=== PATIENT | female | born 1965 | race Caucasian/White ===

== ENCOUNTER 2020-05-29 11:26 | Inpatient (IN) | payer BC ==
[~2020-05-29] VITALS: Ht 162.6 cm; Wt 117.5 kg
--- NOTE | 2020-05-29 12:25 | PHYS DOC ---
Past Medical History Past Medical History: No Pertinent History Past Surgical History: Smoking Status: Never Smoker Alcohol Use: Occasionally General Adult EDM: Chief Complaint: ABDOMINAL PAIN HPI: HPI: Patient is a 55 year old female who presented to ER for evaluation of epigastric and right upper quadrant abdominal pain that radiated to her shoulder since Wednesday. Symptom associated with nausea and vomiting. Patient denies any fever, no chest pain, no trouble breathing. Patient went to see her doctor yesterday who diagnosed her with gastritis, put her on antiacid medication and tramadol. Patient took the medication last night and it helped with the pain however this morning she still having the pain again and she took the medication and still having pain so she came here for evaluation. Review of Systems: Review of Systems: Constitutional: Denies fever or chills. [] Eyes: Denies change in visual acuity. [] HENT: Denies nasal congestion or sore throat. [] Respiratory: Denies cough or shortness of breath. [] Cardiovascular: Denies chest pain or edema. [] GI: Positive for abdominal pain, nausea vomiting, no diarrhea : Denies dysuria. [] Musculoskeletal: Denies back pain or joint pain. [] Integument: Denies rash. [] Neurologic: Denies headache, focal weakness or sensory changes. [] Endocrine: Denies polyuria or polydipsia. [] Lymphatic: Denies swollen glands. [] Psychiatric: Denies depression or anxiety. [] Heart Score: Risk Factors: Risk Factors: DM, Current or recent (<one month) smoker, HTN, HLP, family history of CAD, obesity. Risk Scores: Score 0 - 3: 2.5% MACE over next 6 weeks - Discharge Home Score 4 - 6: 20.3% MACE over next 6 weeks - Admit for Clinical Observation Score 7 - 10: 72.7% MACE over next 6 weeks - Early Invasive Strategies Allergies: Allergies: Allergies Coded Allergies Type Severity Reaction Last Updated Verified No Known Drug Allergies 05/29/20 No Physical Exam: PE: Constitutional: Well developed, well nourished, no acute distress, non-toxic appearance. [] HENT: Normocephalic, atraumatic, bilateral external ears normal, oropharynx m oist, no oral exudates, nose normal. [] Eyes: PERRLA, EOMI, conjunctiva normal, no discharge. [] Neck: Normal range of motion, no tenderness, supple, no stridor. [] Cardiovascular:Heart rate regular rhythm, no murmur [] Lungs & Thorax: Bilateral breath sounds clear to auscultation [] Abdomen: Bowel sounds normal, soft, There is tenderness to palpation in RUQ AND EPIGASTRIC AREA, no masses, no pulsatile masses. [] Skin: Warm, dry, no erythema, no rash. [] Back: No tenderness, no CVA tenderness. [] Extremities: No tenderness, no cyanosis, no clubbing, ROM intact, no edema. [] Neurologic: Alert and oriented X 3, normal motor function, normal sensory function, no focal deficits noted. [] Psychologic: Affect normal, judgement normal, mood normal. [] Current Patient Data: Labs: Laboratory Tests Test 05/29/20 12:18 POC Urine HCG, Qualitative Hcg negative (Negative) Vital Signs: Vital Signs Date Time Temp Pulse Resp B/P (MAP) Pulse Ox O2 Delivery O2 Flow Rate FiO2 05/29/20 12:10 100.2 104 16 139/71 (93) 97 Room Air 100.2 EKG: EKG: [] Radiology/Procedures: Radiology/Procedures: [][facility] [address] [place], [place] [id number] IMAGING REPORT Signed PATIENT: LOUIE DEL RIO ACCOUNT: [id number] : 1965 LOCATION: ER AGE: 55 SEX: F EXAM STATUS: REG ER ORD. PHYSICIAN: INGA NOVA DO REASON: RUQ ABDOMINAL PAIN SINCE WEDNESDAY PROCEDURE: ABDOMEN LTD INDICATION : Reason: RUQ ABDOMINAL PAIN SINCE WEDNESDAY / Spl. Instructions: / History: COMPARISON: None TECHNIQUE: Multiple ultrasound images obtained through the abdomen in grayscale and color. FINDINGS: Liver: Echotexture within normal limits in visualized portions of liver. Gallbladder: Definite gallstones are not seen. Portion of the wall appears mildly prominent. IVC: Partially distended at level of liver. Common Bile Duct: Not dilated. Pancreas: Not well evaluated secondary to overlying bowel gas. Right Kidney: No hydronephrosis. IMPRESSION: * No gallstones or common bile duct dilation is visualized. Electronically signed by: Brandon Rocha MD (05/29/2020 1:21 PM) [id number] DICTATED and SIGNED BY: BRANDON ROCHA MD DATE: 05/29/20 1321 [facility] [address] [place] [address] IMAGING REPORT Signed PATIENT: LOUIE DEL RIO ACCOUNT: [id number] : 1965 LOCATION: ER AGE: 55 SEX: F EXAM STATUS: REG ER ORD. PHYSICIAN: INGA NOVA DO REASON: abdominal pain, hematuria PROCEDURE: CT ABDOMEN PELVIS WO CONTRAST INDICATION: Reason: abdominal pain, hematuria / Spl. Instructions: / History: COMPARISON: None. TECHNIQUE: Axial CT images obtained through the abdomen and pelvis without contrast. One or more of the following individualized dose reduction techniques were utilized for this examination: 1. Automated exposure control; 2. Adjustment of the mA and/or kV according to patient size; 3. Use of iterative reconstruction technique. FINDINGS: Linear opacities at the lung bases which is commonly from atelectasis or scarring. Abdominal aorta is not aneurysmal. Calcific atherosclerosis. No intrahepatic bile duct dilation. No peripancreatic fluid collection. Spleen unremarkable. Urinary bladder partially distended. No hydronephrosis. Intrauterine device is seen. Blind-ending tubular structure in the right lower quadrant measuring approximately 10 mm with adjacent edema to the fat. There is also some high density structure seen at the base which could be secondary to appendicolith. There is also wall thickening of the cecum and adjacent small bowel loops which could be from secondary inflammation from the adjacent appendix. Degenerative changes the spine. Pars defects L5. IMPRESSION: * The appendix is dilated with adjacent edema to the fat. This is concerning for appendicitis. There is some inflammatory changes seen at the adjacent cecum as well as small bowel as well which could be from secondary inflammation from the adjacent appendix. Electronically signed by: Brandon Rocha MD (05/29/2020 2:20 PM) [id number] DICTATED and SIGNED BY: BRANDON ROCHA MD DATE: 05/29/20 1420 Course & Med Decision Making: Course & Med Decision Making Pertinent Labs and Imaging studies reviewed. (See chart for details) Patient is a 55-year-old female who presented to ER today due to right abdominal pain, CT scan show evidence of acute appendicitis, discussed with general surgeon on-call Dr. Farris who stated he will take the patient to the OR tomorrow morning. Anna Disclaimer: Anna Disclaimer: This electronic medical record was generated, in whole or in part, using a voice recognition dictation system. Departure Departure Impression: Primary Impression: Appendicitis Disposition: ADMITTED INPATIENT Admitting Physician: CODY (DR. DIAS) Referrals: NO PCP (PCP) Justicifation of Admission Dx: Justifications for Admission: Justification of Admission Dx: Yes (APPENDICITIS) INGA NOVA DO May 29, 2020 12:25
[2020-05-29 12:28] LABS: BILIRUBIN,URINE SMALL (NEG); CLARITY,URINE CLEAR; COLOR,URINE AMBER; NITRITE,URINE NEGATIVE (NEG); PROTEIN,URINE 30 mg/dL (NEG-TRACE)
[2020-05-29] MEDS ORDERED: MORPHINE SULFATE 4 MG/ML VIAL. IV ONE (12:45)
[2020-05-29 12:46] LABS: BASO # 0.1 x10^3/uL (0.0-0.2); BASO % 0 % (0-3); EOS # 0.1 x10^3/uL (0.0-0.7); EOS % 1 % (0-3); HEMATOCRIT 39.2 % (36.0-47.0); HEMOGLOBIN 13.4 g/dL (12.0-15.5); LYMPH # 0.6 x10^3/uL (1.0-4.8); LYMPH % 5 % (24-48); MEAN CORPUSCULAR HEMOGLOBIN 30 pg (25-35); MEAN CORPUSCULAR HGB CONC 34 g/dL (31-37); MEAN CORPUSCULAR VOLUME 89 fL (79-100); MONO # 0.5 x10^3/uL (0.0-1.1); MONO % 4 % (0-9); NEUT # 10.8 x10^3/uL (1.8-7.7); NEUT % 90 % (31-73); PLATELET COUNT 242 x10^3/uL (140-400); RED BLOOD COUNT 4.42 x10^6/uL (3.50-5.40); WHITE BLOOD COUNT 11.9 x10^3/uL (4.0-11.0)
[2020-05-29 12:47] LABS: CREATININE 0.9 mg/dL (0.6-1.0); GFR 65.5; POTASSIUM 3.7 mmol/L (3.5-5.1)
[2020-05-29 12:47] LABS: BACTERIA,URINE MANY /HPF (0-FEW); SQUAMOUS EPITHELIAL CELL,UR MOD /LPF
[2020-05-29 12:49] LABS: ALBUMIN 3.1 g/dL (3.4-5.0); ALBUMIN/GLOBULIN RATIO 0.7 (1.0-1.7); MAGNESIUM 1.9 mg/dL (1.8-2.4); TOTAL BILIRUBIN 1.4 mg/dL (0.2-1.0); TOTAL PROTEIN 7.4 g/dL (6.4-8.2)
[2020-05-29 12:57] LABS: PROTHROMBIN TIME PATIENT 14.2 SEC (11.7-14.0)
--- NOTE | 2020-05-29 13:24 | RAD ---
INDICATION : Reason: RUQ ABDOMINAL PAIN SINCE WEDNESDAY / . Instructions: / History: COMPARISON: None TECHNIQUE: Multiple ultrasound images obtained through the abdomen in grayscale and color. FINDINGS: Liver: Echotexture within normal limits in visualized portions of liver. Gallbladder: Definite gallstones are not seen. Portion of the wall appears mildly prominent. IVC: Partially distended at level of liver. Common Bile Duct: Not dilated. Pancreas: Not well evaluated secondary to overlying bowel gas. Right Kidney: No hydronephrosis. IMPRESSION: * No gallstones or common bile duct dilation is visualized. Electronically signed by: Armando Dixon MD (05/29/2020 1:21 PM) [id number]
[2020-05-29 13:31] LABS: % LYMPHS 5 % (24-48); % MONOS 4 % (0-10); % SEGS 91 % (35-66); PLT ESTIMATE ADEQUATE (ADEQUATE)
[2020-05-29] MEDS ORDERED: KETOROLAC 30 MG/ML VIAL. IVP ONE (13:45)
--- NOTE | 2020-05-29 14:23 | RAD ---
INDICATION: Reason: abdominal pain, hematuria / Spl. Instructions: / History: COMPARISON: None. TECHNIQUE: Axial CT images obtained through the abdomen and pelvis without contrast. One or more of the following individualized dose reduction techniques were utilized for this examination: 1. Automated exposure control; 2. Adjustment of the mA and/or kV according to patient size; 3. Use of iterative reconstruction technique. FINDINGS: Linear opacities at the lung bases which is commonly from atelectasis or scarring. Abdominal aorta is not aneurysmal. Calcific atherosclerosis. No intrahepatic bile duct dilation. No peripancreatic fluid collection. Spleen unremarkable. Urinary bladder partially distended. No hydronephrosis. Intrauterine device is seen. Blind-ending tubular structure in the right lower quadrant measuring approximately 10 mm with adjacent edema to the fat. There is also some high density structure seen at the base which could be secondary to appendicolith. There is also wall thickening of the cecum and adjacent small bowel loops which could be from secondary inflammation from the adjacent appendix. Degenerative changes the spine. Pars defects L5. IMPRESSION: * The appendix is dilated with adjacent edema to the fat. This is concerning for appendicitis. There is some inflammatory changes seen at the adjacent cecum as well as small bowel as well which could be from secondary inflammation from the adjacent appendix. Electronically signed by: Armando Dixon MD (05/29/2020 2:20 PM) [id number]
[2020-05-29] MEDS ORDERED: PIPERACILLIN/TAZOBACTAM 3.375 GM in IV NORMAL SALINE 50ML 50 ML IV ONE (15:00)
--- NOTE | 2020-05-29 15:08 | PDOC1 ---
History and Physical Date of Admission Date of Admission DATE: 05/29/20 TIME: 15:08 Identification/Chief Complaint Chief Complaint Abdominal pain Source Source: Patient History of Present Illness History of Present Illness Ms Grant is a 55 yo F w/ PMHx obesity who presented to ER for evaluation of epigastric and right upper quadrant abdominal pain that radiated to her shoulder since Wednesday05/27/2020. The pain woke her up around 0300. Symptom associated with nausea and vomiting. Patient denies any fever, no chest pain, no trouble breathing. Patient seen outpatient on 05/28 and placed on antacids and tramadol. Pain was minimally relieved with tramadol. She hoped the pain would go away, but it did not so sought treatment in ED. No vaginal complaints, has IUD in place. On evaluation she had US RUQ that did not reveal cholecystitis, gallstones, or CBD dilation. WBC 11.9, Hb 13.4, platelets 214, INR 1.1, NA 135, LA 3.7, BUN 10, CR 0.9, glucose 105, bilirubin 1.4, albumin 3.1. UA with some blood, so concern for nephrolithiasis prompted a CT abdomen which revealed acute appendicitis. 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 Family History: Coronary Artery Disease (Father and Brother), High Cholestrol Social History Smoke: No ALCOHOL: rare Current Medications Current Medications Current Medications Morphine Sulfate (Morphine Sulfate) 4 mg 1X ONCE IV Last administered on 05/29/20at 12:52; Start 05/29/20 at 12:45; Stop 05/29/20 at 12:46; Status DC Ketorolac Tromethamine (Toradol 30mg Vial) 30 mg 1X ONCE IVP Last administered on 05/29/20at 14:01; Start 05/29/20 at 13:45; Stop 05/29/20 at 13:46; Status DC Piperacillin Sod/ Tazobactam Sod 3.375 gm/Sodium Chloride 50 ml @ 100 mls/hr 1X ONCE IV ; Start 05/29/20 at 15:00; Stop 05/29/20 at 15:29 Ondansetron HCl (Zofran) 4 mg PRN Q8HRS PRN IV NAUSEA/VOMITING; Start 05/29/20 at 15:15; Stop 05/30/20 at 15:14 Morphine Sulfate (Morphine Sulfate) 2 mg PRN Q2HR PRN IV PAIN; Start 05/29/20 at 15:15; Stop 05/30/20 at 15:14 Sodium Chloride 1,000 ml @ 75 mls/hr [id number] IV ; Start 05/29/20 at 15:01; Stop 05/30/20 at 15:00 Allergies Allergies: Coded Allergies: No Known Drug Allergies (Unverified , 05/29/20) ROS General: YES: Chills; No: Night Sweats, Fatigue, Malaise, Appetite, Other PSYCHOLOGICAL ROS: No: Anxiety, Behavioral Disorder, Concentration difficultie, Decreased libido, Depression, Disorientation, Hallucinations, Hostility, Irritablity, Memory difficulties, Mood Swings, Obsessive thoughts, Physical abuse, Sexual abuse, Sleep disturbances, Suicidal ideation, Other Eyes: No Blurry vision, No Decreased vision, No Double vision, No Dry eyes, No Excessive tearing, No Eye Pain, No Itchy Eyes, No Loss of vision, No Photophobia, No Scotomata, No Uses contacts, No Uses glasses, No Other HEENT: No: Heacaches, Visual Changes, Hearing change, Nasal congestion, Nasal discharge, Oral lesions, Sinus pain, Sore Throat, Epistaxis, Sneezing, Snoring, Tinnitus, Vertigo, Vocal changes, Other ALLERGY AND IMMUNOLOGY: No: Hives, Insect Bite Sensitivity, Itchy/Watery Eyes, Nasal Congestion, Post Nasal Drip, Seasonal Allergies, Other Hematological and Lymphatic: No: Bleeding Problems, Blood Clots, Blood Transfusions, Brusing, Night Sweats, Pallor, Swollen Lymph Nodes, Other ENDOCRINE: No: Breast Changes, Galactorrhea, Hair Pattern Changes, Hot Flashes, Malaise/lethargy, Mood Swings, Palpitations, Polydipsia/polyuria, Skin Changes, Temperature Intolerance, Unexpected Weight Changes, Other Breast: No New/Changing Breast Lumps, No Nipple changes, No Nipple discharge, No Other Respiratory: No: Cough, Hemoptysis, Orthopnea, Pleuritic Pain, Shortness of breath, SOB with excertion, Sputum Changes, Stridor, Tachypnea, Wheezing, Other Cardiovascular: No Chest Pain, No Palpitations, No Orthopnea, No Paroxysmal Noc. Dyspnea, No Edema, No Lt Headedness, No Other Gastrointestinal: Yes Nausea, Yes Abdominal Pain; No Vomiting, No Diarrhea, No Constipation, No Melena, No Hematochezia, No Other Genitourinary: No Dysuria, No Frequency, No Incontinence, No Hematuria, No Retention, No Discharge, No Urgency, No Pain, No Flank Pain, No Other, No , No , No , No , No , No , No Musculoskeletal: No Gait Disturbance, No Joint Pain, No Joint Stiffness, No Joint Swelling, No Muscle Pain, No Muscular Weakness, No Pain In:, No Swelling In:, No Other Neurological: No Behavorial Changes, No Bowel/Bladder ControlChng, No Confusion, No Dizziness, No Gait Disturbance, No Headaches, No Impaired Coord/balance, No Memory Loss, No Numbness/Tingling, No Seizures, No Speech Problems, No Tremors, No Visual Changes, No Weakness, No Other Skin: No Dry Skin, No Eczema, No Hair Changes, No Lumps, No Mole Changes, No Mottling, No Nail Changes, No Pruritus, No Rash, No Skin Lesion Changes, No Other, No Acne Physical Exam General: Alert, Oriented X3, Cooperative, moderate distress HEENT: Atraumatic, PERRLA, EOMI, Mucous membr. moist/pink Lungs: Clear to auscultation, Normal air movement Heart: S1S2, RRR, no thrills, no rubs, no gallops, no murmurs Abdomen: Normal bowel sounds, Soft, No hepatosplenomegaly, No masses, Other (RUQ and RLQ pain) Rectal Exam: not examined Extremities: No clubbing, No cyanosis, No edema, Normal pulses, No tend erness/swelling Skin: No rashes, No breakdown, No significant lesion Neuro: Normal gait, Normal speech, Strength at 5/5 X4 ext, Normal tone, Sensation intact, Cranial nerves 3-12 NL, Reflexes 2+ Psych/Mental Status: Mental status NL, Mood NL Vitals Vitals Vital Signs Date Time Temp Pulse Resp B/P (MAP) Pulse Ox O2 Delivery O2 Flow Rate FiO2 05/29/20 14:00 86 137/66 (89) 97 Room Air 05/29/20 12:10 100.2 16 100.2 Labs Labs Laboratory Tests Test 05/29/20 11:50 05/29/20 12:18 05/29/20 12:20 Urine Collection Type Unknown Urine Color Aditi Urine Clarity Clear Urine pH 6.0 (<5.0-8.0) Urine Specific [employer] 1.015 (1.000-1.030) Urine Protein 30 mg/dL (NEG-TRACE) Urine Glucose (UA) Negative mg/dL (NEG) Urine Ketones (Stick) 40 mg/dL (NEG) Urine Blood Moderate (NEG) Urine Nitrite Negative (NEG) Urine Bilirubin Small (NEG) Urine Urobilinogen Dipstick 1.0 mg/dL (0.2 mg/dL) Urine Leukocyte Esterase Negative (NEG) Urine RBC 11-20 /HPF (0-2) Urine WBC 5-10 /HPF (0-4) Urine Squamous Epithelial Cells Mod /LPF Urine Bacteria Many /HPF (0-FEW) Urine Mucus Marked /LPF Bedside Urine HCG, Qualitative Hcg negative (Negative) White Blood Count 11.9 x10^3/uL (4.0-11.0) Red Blood Count 4.42 x10^6/uL (3.50-5.40) Hemoglobin 13.4 g/dL (12.0-15.5) Hematocrit 39.2 % (36.0-47.0) Mean Corpuscular Volume 89 fL (79-100) Mean Corpuscular Hemoglobin 30 pg (25-35) Mean Corpuscular Hemoglobin Concent 34 g/dL (31-37) Red Cell Distribution Width 14.0 % (11.5-14.5) Platelet Count 242 x10^3/uL (140-400) Neutrophils (%) (Auto) 90 % (31-73) Lymphocytes (%) (Auto) 5 % (24-48) Monocytes (%) (Auto) 4 % (0-9) Eosinophils (%) (Auto) 1 % (0-3) Basophils (%) (Auto) 0 % (0-3) Neutrophils # (Auto) 10.8 x10^3/uL (1.8-7.7) Lymphocytes # (Auto) 0.6 x10^3/uL (1.0-4.8) Monocytes # (Auto) 0.5 x10^3/uL (0.0-1.1) Eosinophils # (Auto) 0.1 x10^3/uL (0.0-0.7) Basophils # (Auto) 0.1 x10^3/uL (0.0-0.2) Segmented Neutrophils % 91 % (35-66) Lymphocytes % 5 % (24-48) Monocytes % 4 % (0-10) Platelet Estimate Adequate (ADEQUATE) Prothrombin Time 14.2 SEC (11.7-14.0) Prothromb Time International Ratio 1.1 (0.8-1.1) Activated Partial Thromboplast Time 34 SEC (24-38) Sodium Level 135 mmol/L (136-145) Potassium Level 3.7 mmol/L (3.5-5.1) Chloride Level 100 mmol/L (98-107) Carbon Dioxide Level 28 mmol/L (21-32) Anion Gap 7 (6-14) Blood Urea Nitrogen 10 mg/dL (7-20) Creatinine 0.9 mg/dL (0.6-1.0) Estimated GFR (Cockcroft-Gault) 65.5 BUN/Creatinine Ratio 11 (6-20) Glucose Level 105 mg/dL (70-99) Calcium Level 9.0 mg/dL (8.5-10.1) Magnesium Level 1.9 mg/dL (1.8-2.4) Total Bilirubin 1.4 mg/dL (0.2-1.0) Aspartate Amino Transf (AST/SGOT) 14 U/L (15-37) Alanine Aminotransferase (ALT/SGPT) 17 U/L (14-59) Alkaline Phosphatase 73 U/L (46-116) Total Protein 7.4 g/dL (6.4-8.2) Albumin 3.1 g/dL (3.4-5.0) Albumin/Globulin Ratio 0.7 (1.0-1.7) Lipase 69 U/L (73-393) Laboratory Tests Test 05/29/20 11:50 05/29/20 12:18 05/29/20 12:20 Urine Collection Type Unknown Urine Color Aditi Urine Clarity Clear Urine pH 6.0 (<5.0-8.0) Urine Specific [employer] 1.015 (1.000-1.030) Urine Protein 30 mg/dL (NEG-TRACE) Urine Glucose (UA) Negative mg/dL (NEG) Urine Ketones (Stick) 40 mg/dL (NEG) Urine Blood Moderate (NEG) Urine Nitrite Negative (NEG) Urine Bilirubin Small (NEG) Urine Urobilinogen Dipstick 1.0 mg/dL (0.2 mg/dL) Urine Leukocyte Esterase Negative (NEG) Urine RBC 11-20 /HPF (0-2) Urine WBC 5-10 /HPF (0-4) Urine Squamous Epithelial Cells Mod /LPF Urine Bacteria Many /HPF (0-FEW) Urine Mucus Marked /LPF Bedside Urine HCG, Qualitative Hcg negative (Negative) White Blood Count 11.9 x10^3/uL (4.0-11.0) Red Blood Count 4.42 x10^6/uL (3.50-5.40) Hemoglobin 13.4 g/dL (12.0-15.5) Hematocrit 39.2 % (36.0-47.0) Mean Corpuscular Volume 89 fL (79-100) Mean Corpuscular Hemoglobin 30 pg (25-35) Mean Corpuscular Hemoglobin Concent 34 g/dL (31-37) Red Cell Distribution Width 14.0 % (11.5-14.5) Platelet Count 242 x10^3/uL (140-400) Neutrophils (%) (Auto) 90 % (31-73) Lymphocytes (%) (Auto) 5 % (24-48) Monocytes (%) (Auto) 4 % (0-9) Eosinophils (%) (Auto) 1 % (0-3) Basophils (%) (Auto) 0 % (0-3) Neutrophils # (Auto) 10.8 x10^3/uL (1.8-7.7) Lymphocytes # (Auto) 0.6 x10^3/uL (1.0-4.8) Monocytes # (Auto) 0.5 x10^3/uL (0.0-1.1) Eosinophils # (Auto) 0.1 x10^3/uL (0.0-0.7) Basophils # (Auto) 0.1 x10^3/uL (0.0-0.2) Segmented Neutrophils % 91 % (35-66) Lymphocytes % 5 % (24-48) Monocytes % 4 % (0-10) Platelet Estimate Adequate (ADEQUATE) Prothrombin Time 14.2 SEC (11.7-14.0) Prothromb Time International Ratio 1.1 (0.8-1.1) Activated Partial Thromboplast Time 34 SEC (24-38) Sodium Level 135 mmol/L (136-145) Potassium Level 3.7 mmol/L (3.5-5.1) Chloride Level 100 mmol/L (98-107) Carbon Dioxide Level 28 mmol/L (21-32) Anion Gap 7 (6-14) Blood Urea Nitrogen 10 mg/dL (7-20) Creatinine 0.9 mg/dL (0.6-1.0) Estimated GFR (Cockcroft-Gault) 65.5 BUN/Creatinine Ratio 11 (6-20) Glucose Level 105 mg/dL (70-99) Calcium Level 9.0 mg/dL (8.5-10.1) Magnesium Level 1.9 mg/dL (1.8-2.4) Total Bilirubin 1.4 mg/dL (0.2-1.0) Aspartate Amino Transf (AST/SGOT) 14 U/L (15-37) Alanine Aminotransferase (ALT/SGPT) 17 U/L (14-59) Alkaline Phosphatase 73 U/L (46-116) Total Protein 7.4 g/dL (6.4-8.2) Albumin 3.1 g/dL (3.4-5.0) Albumin/Globulin Ratio 0.7 (1.0-1.7) Lipase 69 U/L (73-393) Images Images RUQ US: Liver: Echotexture within normal limits in visualized portions of liver. Gallbladder: Definite gallstones are not seen. Portion of the wall appears mildly prominent. IVC: Partially distended at level of liver. Common Bile Duct: Not dilated. Pancreas: Not well evaluated secondary to overlying bowel gas. Right Kidney: No hydronephrosis. IMPRESSION: No gallstones or common bile duct dilation is visualized. Linear opacities at the lung bases which is commonly from atelectasis or scarri ng. Abdominal aorta is not aneurysmal. Calcific atherosclerosis. No intrahepatic bile duct dilation. No peripancreatic fluid collection. Spleen unremarkable. Urinary bladder partially distended. No hydronephrosis. Intrauterine device is seen. Blind-ending tubular structure in the right lower quadrant measuring approximately 10 mm with adjacent edema to the fat. There is also some high density structure seen at the base which could be secondary to appendicolith. There is also wall thickening of the cecum and adjacent small bowel loops which could be from secondary inflammation from the adjacent appendix. Degenerative changes the spine. Pars defects L5. IMPRESSION: The appendix is dilated with adjacent edema to the fat. This is concerning for appendicitis. There is some inflammatory changes seen at the adjacent cecum as well as small bowel as well which could be from secondary inflammation from the adjacent appendix. VTE Prophylaxis Ordered VTE Prophylaxis Devices: Yes VTE Pharmacological Prophylaxi: No Assessment/Plan Assessment/Plan A/P: Abdominal pain - seems to be acute appendicitis. Zosyn, consult general surgery, IV pain control, IV antiemetics. urine negative. No cardiac history, will obtain pre-op EKG and pre op rapid COVID 19 screen Sepsis - with leukocytosis, tachycardia, due to appendicitis, given IVF, zosyn Elevated bilirubin - will monitor Mild protein calorie malnutrition - likely from poor PO intake 3 days Hematuria - possibly recently passed a stone Obesity - counseled on weight loss, diet, exercise FEN - NPO, sips with meds PPX - SCDs FULL CODE Dispo - inpatient Justifications for Admission Other Justification HILARIA DIAS MD May 29, 2020 15:08
[2020-05-29] MEDS ORDERED: ONDANSETRON PF 4 MG/2 ML VIAL. IV PRN (15:15)
[2020-05-29] MEDS: IV NORMAL SALINE 1000ML BAG 1,000 ML IV SCH ×2 (15:16→22:52)
[2020-05-29 17:45] VITALS: BP 149/61
[2020-05-29 19:00] VITALS: BP 110/43
--- NOTE | 2020-05-29 19:50 | EKG ---
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
[2020-05-29] MEDS: ONDANSETRON PF 4 MG/2 ML VIAL. IV PRN (19:58)
[2020-05-29] MEDS: MORPHINE SULFATE 2 MG/ML VIAL. IV PRN (19:59)
[2020-05-29] MEDS: PIPERACILLIN/TAZOBACTAM 3.375 GM in IV NORMAL SALINE 50ML 50 ML IV SCH (22:35)
[2020-05-29 22:41] VITALS: BP 118/74
[2020-05-30] VITALS (7 sets, daily range): BP systolic 107–127; BP diastolic 59–82
[2020-05-30] MEDS: ONDANSETRON PF 4 MG/2 ML VIAL. IV PRN ×2 (01:23→20:05)
[2020-05-30] MEDS: MORPHINE SULFATE 2 MG/ML VIAL. IV PRN ×6 (01:24→20:07)
[2020-05-30] MEDS: PIPERACILLIN/TAZOBACTAM 3.375 GM in IV NORMAL SALINE 50ML 50 ML IV SCH ×4 (06:31→23:18)
[2020-05-30] MEDS: IV RINGERS,LACTATED 1000ML 1,000 ML IV SCH ×3 (06:32→14:20)
[2020-05-30] MEDS ORDERED: PROCHLORPERAZINE 10 MG/2 ML VIAL. IV PRN (07:00)
[2020-05-30] MEDS ORDERED: fentaNYL PF VIAL 100 MCG/2 ML VIAL IV PRN ×2 (07:00)
[2020-05-30] MEDS ORDERED: HYDROmorphone 2 MG/ML VIAL IV PRN (07:00)
[2020-05-30] MEDS ORDERED: MORPHINE SULFATE 2 MG/ML VIAL. IV PRN (07:00)
--- NOTE | 2020-05-30 08:30 | PDOC2 ---
SCOT CHATTERJEE TUCK POINTER 05/30/20 0830: CONSULT Date of Consult Date of Consult DATE: 05/30/20 TIME: 08:26 Reason for Consult Reason for Consult: acute appendicitis Referring Physician Referring Physician: ER Identification/Chief Complaint Chief Complaint abdominal pain Source Source: Chart review, Patient History of Present Illness Reason for Visit: Reports epigastric abdominal pain starting wednesday. This progressively worsened. Seems to settle to RLQ. No emesis, mild nausea with pain medication. NO constipation or diarrhea. No pain that has lasted like this in past. Movement seems to aggravate pain. Past Medical History Past Medical History no pertinent hx Past Surgical History Past Surgical History: Family History Family History: Coronary Artery Disease (Father and Brother), High Cholestrol Social History No ALCOHOL: rare Current Problem List Problem List Problems Medical Problems: (1) Appendicitis Status: Acute Current Medications Current Medications Current Medications Morphine Sulfate (Morphine Sulfate) 4 mg 1X ONCE IV Last administered on 05/29/20at 12:52; Start 05/29/20 at 12:45; Stop 05/29/20 at 12:46; Status DC Ketorolac Tromethamine (Toradol 30mg Vial) 30 mg 1X ONCE IVP Last administered on 05/29/20at 14:01; Start 05/29/20 at 13:45; Stop 05/29/20 at 13:46; Status DC Piperacillin Sod/ Tazobactam Sod 3.375 gm/Sodium Chloride 50 ml @ 100 mls/hr 1X ONCE IV Last administered on 05/29/20at 15:17; Start 05/29/20 at 15:00; Stop 05/29/20 at 15:29; Status DC Ondansetron HCl (Zofran) 4 mg PRN Q8HRS PRN IV NAUSEA/VOMITING; Start 05/29/20 at 15:15; Stop 05/29/20 at 16:08; Status DC Morphine Sulfate (Morphine Sulfate) 2 mg PRN Q2HR PRN IV PAIN Last administered on 05/30/20at 08:03; Start 05/29/20 at 15:15; Stop 05/30/20 at 15:14 Sodium Chloride 1,000 ml @ 75 mls/hr [id number] IV Last administered on 05/29/20at 22:52; Start 05/29/20 at 15:01; Stop 05/30/20 at 15:00 Fentanyl Citrate (Fentanyl 2ml Vial) 25 mcg PRN Q5MIN PRN IV MILD PAIN 1-3; Start 05/30/20 at 07:00; Stop 05/31/20 at 06:59 Fentanyl Citrate (Fentanyl 2ml Vial) 50 mcg PRN Q5MIN PRN IV MODERATE TO SEVERE PAIN; Start 05/30/20 at 07:00; Stop 05/31/20 at 06:59 Morphine Sulfate (Morphine Sulfate) 1 mg PRN Q10MIN PRN IV SEVERE PAIN 7-10; Start 05/30/20 at 07:00; Stop 05/31/20 at 06:59 Ringer's Solution 1,000 ml @ 30 mls/hr Q24H IV ; Start 05/30/20 at 07:00; Stop 05/30/20 at 18:59 Hydromorphone HCl (Dilaudid) 0.5 mg PRN Q10MIN PRN IV SEV PAIN, Second choice; Start 05/30/20 at 07:00; Stop 05/31/20 at 06:59 Prochlorperazine Edisylate (Compazine) 5 mg PACU PRN PRN IV NAUSEA, MRX1; Start 05/30/20 at 07:00; Stop 05/31/20 at 06:59 Ondansetron HCl (Zofran) 4 mg PRN Q4HRS PRN IV NAUSEA/VOMITING Last administered on 05/30/20at 01:23; Start 05/29/20 at 16:15 Piperacillin Sod/ Tazobactam Sod 3.375 gm/Sodium Chloride 50 ml @ 100 mls/hr Q6HRS IV Last administered on 05/30/20at 06:31; Start 05/29/20 at 22:00 Allergies Allergies: Coded Allergies: No Known Drug Allergies (Unverified , 05/29/20) ROS General: No: Chills, Fatigue PSYCHOLOGICAL ROS: No: Anxiety, Depression Eyes: No Blurry vision, No Double vision HEENT: No: Heacaches Hematological and Lymphatic: No: Bleeding Problems, Blood Clots Respiratory: No: Cough, Shortness of breath Cardiovascular: No Chest Pain, No Palpitations Gastrointestinal: Yes Other (see hpi) Genitourinary: No Dysuria, No Hematuria Musculoskeletal: No Joint Pain, No Muscle Pain Neurological: No Headaches, No Numbness/Tingling Skin: No Pruritus, No Rash Physical Exam General: Alert, Oriented X3, Cooperative HEENT: Atraumatic, PERRLA Lungs: Clear to auscultation, Normal air movement Heart: Regular rate, Normal S1, Normal S2 Abdomen: Soft, Other (TTP RLQ, no guarding ) Extremities: No clubbing, No cyanosis Skin: No rashes, No breakdown Neuro: Normal gait, Normal speech Psych/Mental Status: Mental status NL, Mood NL MUSCULOSKELETAL: No deformity, No swelling Vitals VITALS Vital Signs Date Time Temp Pulse Resp B/P (MAP) Pulse Ox O2 Delivery O2 Flow Rate FiO2 05/30/20 08:03 19 92 Room Air 05/30/20 02:50 97.9 86 107/66 (80) 97.9 Labs Labs Laboratory Tests Test 05/29/20 11:50 05/29/20 12:18 05/29/20 12:20 05/29/20 15:15 Urine Collection Type Unknown Urine Color Aditi Urine Clarity Clear Urine pH 6.0 (<5.0-8.0) Urine Specific Alpine 1.015 (1.000-1.030) Urine Protein 30 mg/dL (NEG-TRACE) Urine Glucose (UA) Negative mg/dL (NEG) Urine Ketones (Stick) 40 mg/dL (NEG) Urine Blood Moderate (NEG) Urine Nitrite Negative (NEG) Urine Bilirubin Small (NEG) Urine Urobilinogen Dipstick 1.0 mg/dL (0.2 mg/dL) Urine Leukocyte Esterase Negative (NEG) Urine RBC 11-20 /HPF (0-2) Urine WBC 5-10 /HPF (0-4) Urine Squamous Epithelial Cells Mod /LPF Urine Bacteria Many /HPF (0-FEW) Urine Mucus Marked /LPF Bedside Urine HCG, Qualitative Hcg negative (Negative) White Blood Count 11.9 x10^3/uL (4.0-11.0) Red Blood Count 4.42 x10^6/uL (3.50-5.40) Hemoglobin 13.4 g/dL (12.0-15.5) Hematocrit 39.2 % (36.0-47.0) Mean Corpuscular Volume 89 fL (79-100) Mean Corpuscular Hemoglobin 30 pg (25-35) Mean Corpuscular Hemoglobin Concent 34 g/dL (31-37) Red Cell Distribution Width 14.0 % (11.5-14.5) Platelet Count 242 x10^3/uL (140-400) Neutrophils (%) (Auto) 90 % (31-73) Lymphocytes (%) (Auto) 5 % (24-48) Monocytes (%) (Auto) 4 % (0-9) Eosinophils (%) (Auto) 1 % (0-3) Basophils (%) (Auto) 0 % (0-3) Neutrophils # (Auto) 10.8 x10^3/uL (1.8-7.7) Lymphocytes # (Auto) 0.6 x10^3/uL (1.0-4.8) Monocytes # (Auto) 0.5 x10^3/uL (0.0-1.1) Eosinophils # (Auto) 0.1 x10^3/uL (0.0-0.7) Basophils # (Auto) 0.1 x10^3/uL (0.0-0.2) Segmented Neutrophils % 91 % (35-66) Lymphocytes % 5 % (24-48) Monocytes % 4 % (0-10) Platelet Estimate Adequate (ADEQUATE) Prothrombin Time 14.2 SEC (11.7-14.0) Prothromb Time International Ratio 1.1 (0.8-1.1) Activated Partial Thromboplast Time 34 SEC (24-38) Sodium Level 135 mmol/L (136-145) Potassium Level 3.7 mmol/L (3.5-5.1) Chloride Level 100 mmol/L (98-107) Carbon Dioxide Level 28 mmol/L (21-32) Anion Gap 7 (6-14) Blood Urea Nitrogen 10 mg/dL (7-20) Creatinine 0.9 mg/dL (0.6-1.0) Estimated GFR (Cockcroft-Gault) 65.5 BUN/Creatinine Ratio 11 (6-20) Glucose Level 105 mg/dL (70-99) Calcium Level 9.0 mg/dL (8.5-10.1) Magnesium Level 1.9 mg/dL (1.8-2.4) Total Bilirubin 1.4 mg/dL (0.2-1.0) Aspartate Amino Transf (AST/SGOT) 14 U/L (15-37) Alanine Aminotransferase (ALT/SGPT) 17 U/L (14-59) Alkaline Phosphatase 73 U/L (46-116) Total Protein 7.4 g/dL (6.4-8.2) Albumin 3.1 g/dL (3.4-5.0) Albumin/Globulin Ratio 0.7 (1.0-1.7) Lipase 69 U/L (73-393) SARS-CoV-2 Antigen (Rapid) Negative (NEGATIVE) Laboratory Tests Test 05/29/20 11:50 05/29/20 12:18 05/29/20 12:20 05/29/20 15:15 Urine Collection Type Unknown Urine Color Aditi Urine Clarity Clear Urine pH 6.0 (<5.0-8.0) Urine Specific Alpine 1.015 (1.000-1.030) Urine Protein 30 mg/dL (NEG-TRACE) Urine Glucose (UA) Negative mg/dL (NEG) Urine Ketones (Stick) 40 mg/dL (NEG) Urine Blood Moderate (NEG) Urine Nitrite Negative (NEG) Urine Bilirubin Small (NEG) Urine Urobilinogen Dipstick 1.0 mg/dL (0.2 mg/dL) Urine Leukocyte Esterase Negative (NEG) Urine RBC 11-20 /HPF (0-2) Urine WBC 5-10 /HPF (0-4) Urine Squamous Epithelial Cells Mod /LPF Urine Bacteria Many /HPF (0-FEW) Urine Mucus Marked /LPF Bedside Urine HCG, Qualitative Hcg negative (Negative) White Blood Count 11.9 x10^3/uL (4.0-11.0) Red Blood Count 4.42 x10^6/uL (3.50-5.40) Hemoglobin 13.4 g/dL (12.0-15.5) Hematocrit 39.2 % (36.0-47.0) Mean Corpuscular Volume 89 fL (79-100) Mean Corpuscular Hemoglobin 30 pg (25-35) Mean Corpuscular Hemoglobin Concent 34 g/dL (31-37) Red Cell Distribution Width 14.0 % (11.5-14.5) Platelet Count 242 x10^3/uL (140-400) Neutrophils (%) (Auto) 90 % (31-73) Lymphocytes (%) (Auto) 5 % (24-48) Monocytes (%) (Auto) 4 % (0-9) Eosinophils (%) (Auto) 1 % (0-3) Basophils (%) (Auto) 0 % (0-3) Neutrophils # (Auto) 10.8 x10^3/uL (1.8-7.7) Lymphocytes # (Auto) 0.6 x10^3/uL (1.0-4.8) Monocytes # (Auto) 0.5 x10^3/uL (0.0-1.1) Eosinophils # (Auto) 0.1 x10^3/uL (0.0-0.7) Basophils # (Auto) 0.1 x10^3/uL (0.0-0.2) Segmented Neutrophils % 91 % (35-66) Lymphocytes % 5 % (24-48) Monocytes % 4 % (0-10) Platelet Estimate Adequate (ADEQUATE) Prothrombin Time 14.2 SEC (11.7-14.0) Prothromb Time International Ratio 1.1 (0.8-1.1) Activated Partial Thromboplast Time 34 SEC (24-38) Sodium Level 135 mmol/L (136-145) Potassium Level 3.7 mmol/L (3.5-5.1) Chloride Level 100 mmol/L (98-107) Carbon Dioxide Level 28 mmol/L (21-32) Anion Gap 7 (6-14) Blood Urea Nitrogen 10 mg/dL (7-20) Creatinine 0.9 mg/dL (0.6-1.0) Estimated GFR (Cockcroft-Gault) 65.5 BUN/Creatinine Ratio 11 (6-20) Glucose Level 105 mg/dL (70-99) Calcium Level 9.0 mg/dL (8.5-10.1) Magnesium Level 1.9 mg/dL (1.8-2.4) Total Bilirubin 1.4 mg/dL (0.2-1.0) Aspartate Amino Transf (AST/SGOT) 14 U/L (15-37) Alanine Aminotransferase (ALT/SGPT) 17 U/L (14-59) Alkaline Phosphatase 73 U/L (46-116) Total Protein 7.4 g/dL (6.4-8.2) Albumin 3.1 g/dL (3.4-5.0) Albumin/Globulin Ratio 0.7 (1.0-1.7) Lipase 69 U/L (73-393) SARS-CoV-2 Antigen (Rapid) Negative (NEGATIVE) Assessment/Plan Assessment/Plan acute appendicitis obesity-BMI 44.5 plan lap appy today BRENDEN ARMENDARIZ MD 05/30/20 1118: CONSULT Assessment/Plan Assessment/Plan Pt seen and examined. Agree with Ms. Chatterjee's note Pt with c/o RLQ abd pain, imaging c/w appendicitis TO OR for laparoscopic versus open appendectomy. R/R/B/A d/w pt. Risks, including, but not limited to: bleeding, infection, damage to surrounding structures, risk of anesthesia, risk of open. Her obesity does increase risk of complications. She appears to understand, her questions are answered and she elects to proceed. Thanks for consult! SCOT CHATTERJEE APRN May 30, 2020 08:30 BRENDEN ARMENDARIZ MD May 30, 2020 11:18
[2020-05-30] MEDS ORDERED: ROCURONIUM 50 MG/5 ML VIAL. ONE (10:21)
[2020-05-30] MEDS ORDERED: fentaNYL PF VIAL 100 MCG/2 ML VIAL ONE ×3 (10:22→13:28)
[2020-05-30] MEDS ORDERED: DEXAMETHASONE SOD PHOS 4 MG/ML VIAL ONE (10:23)
[2020-05-30] MEDS ORDERED: ONDANSETRON PF 4 MG/2 ML VIAL. ONE (10:23)
[2020-05-30] MEDS ORDERED: PROPOFOL 10 MG/ML (20ML) VIAL. IV ONE (10:23)
[2020-05-30] MEDS ORDERED: LIDOCAINE 2% PF 5 ML VIAL. ONE (10:23)
[2020-05-30] MEDS ORDERED: MIDAZOLAM HCL/PF 2 MG/2 ML VIAL. ONE (10:23)
[2020-05-30] MEDS ORDERED: GLYCOPYRROLATE 1 MG/5 ML VIAL. ONE (10:23)
[2020-05-30] MEDS ORDERED: NEOSTIGMINE METHYLSULFATE 5 MG/5 ML SYRINGE. ONE (10:24)
--- NOTE | 2020-05-30 10:46 | NUR ---
SS following for discharge planning. SS reviewed pt chart and discussed with pt RN. Pt is from home and is currently on room air. Pt on IV Zosyn. COVID19 negative. Pt scheduled for lap appy today with surgery. SS will continue to follow for discharge planning.
[2020-05-30] MEDS ORDERED: BUPIVACAINE-EPI 0.5%-1:200000 MPF 30 ML VIAL. ONE (11:50)
[2020-05-30] MEDS ORDERED: SCOPOLAMINE 1.5MG PATCH. TD ONE ×2 (11:53→14:30)
[2020-05-30] MEDS ORDERED: SEVOFLURANE 61 TO 120 MINUTES. IH ONE (13:14)
[2020-05-30] MEDS ORDERED: PROCHLORPERAZINE 10 MG/2 ML VIAL. ONE (13:28)
--- NOTE | 2020-05-30 13:31 | NUR ---
Per verbal permission from Dr. Colin, patient may be discharged from the hospital today by Dr. Ramires.
[2020-05-30] MEDS: IV NORMAL SALINE 1000ML BAG 1,000 ML IV SCH (14:20)
--- NOTE | 2020-05-30 14:29 | PDOC4 ---
OPERATIVE NOTE Date: Date: May 30, 2020 Pre-Op Diagnosis: Appendicitis Post-Op Diagnosis: same with peritonitis Procedure Performed: laparoscopic appendectomy Surgeon: Santiago Armendariz Anesthesia Type: GETA plus local Blood Loss: 50 Specimans Obtained: appendix Findings: diffuse peritonitis making dissection difficult, c/w pelvic inflammatory disease, but felt to be secondary to appendicitis, karolina haresh carson adhesions, indurated thickened appendix with suspected perforation. Complications: none Operative Note: After obtaining informed consent, patient was taken to OR, induced under GETA and prepped in the usual fashion. 5 mm port placed umbilical and suprapubic, 12 port placed RUQ, all under laparoscopic guidance. Abdominal cavity was explored and noted as above. Obesity and extensive peritonitis making the procedure extremely difficult. Cecum identified, but taenia were not prominent. Blind end pouch off cecum identified to be appendix. Bluntly dissected out. Defect created in mesoappendix. Mesoappendix carefully resected close to appendix and ligated with clips and scissors. General load ARNEL taken across base of appendix at level of cecum. Appendix placed in bag, delivered and sent to pathology for evaluation. Copious irrigation. No evidence of bleeding or other pathology noted. Ports removed without bleeding. Fascia repaired with 0 vicryl. Skin repaired with 4 0 monocryl. Dressing placed. Patient tolerated procedure well and sent to PACU in stable condition. All coun ts correct. Wound class is dirty, 4. BRENDEN ARMENDARIZ MD May 30, 2020 14:28
[2020-05-30] MEDS ORDERED: 0.9 % SODIUM CHLORIDE 10 ML DISP.SYRIN. IV PRN (14:30)
[2020-05-30] MEDS ORDERED: NALOXONE 0.4 MG/ML VIAL. IV PRN (14:30)
--- NOTE | 2020-05-30 17:12 | PDOC ---
[employer] PROGRESS NOTE Date of Service DOS: DATE: 05/30/20 TIME: 17:09 Chief Complaint Chief Complaint Abdominal pain A/P: Abdominal pain - seems to be acute appendicitis. Zosyn, consult general surgery, IV pain control, IV antiemetics. urine negative. No cardiac history, will obtain pre-op EKG and pre op rapid COVID 19 screen Sepsis - with leukocytosis, tachycardia, due to appendicitis, given IVF, zosyn Elevated bilirubin - will monitor Mild protein calorie malnutrition - likely from poor PO intake 3 days Hematuria - possibly recently passed a stone Obesity - counseled on weight loss, diet, exercise History of Present Illness History of Present Illness Ms Grant is a 55 yo F w/ PMHx obesity who presented to ER for evaluation of epigastric and right upper quadrant abdominal pain that radiated to her shoulder since Wednesday05/27/2020. The pain woke her up around 0300. Symptom associated with nausea and vomiting. Patient denies any fever, no chest pain, no trouble breathing. Patient seen outpatient on 05/28 and placed on antacids and tramadol. Pain was minimally relieved with tramadol. She hoped the pain would go away, but it did not so sought treatment in ED. No vaginal complaints, has IUD in place. On evaluation she had US RUQ that did not reveal cholecystitis, gallstones, or CBD dilation. WBC 11.9, Hb 13.4, platelets 214, INR 1.1, NA 135, LA 3.7, BUN 10, CR 0.9, glucose 105, bilirubin 1.4, albumin 3.1. UA with some blood, so concern for nephrolithiasis prompted a CT abdomen which revealed acute appendicitis. 05/30/2020 Patient s/p laparoscopic appendectomy today. She admits to some incisional pain. She denies nausea or vomiting. She has not had a bowel movement. Denies flatus. Pain management. Discussed with RN Vitals/I&O Vitals/I&O: Vital Signs Date Time Temp Pulse Resp B/P (MAP) Pulse Ox O2 Delivery O2 Flow Rate FiO2 05/30/20 16:06 70 19 127/73 (91) Room Air 05/30/20 16:05 98 05/30/20 15:00 97.7 97.7 05/30/20 14:31 3.0 I & O 9/05/29/20 05/30/20 15:00 23:00 07:00 Intake Total 300 ml 50 ml Balance 300 ml 50 ml Physical Exam General: Alert, Oriented X3, Cooperative Heart: Regular rate, Normal S1, Normal S2 Abdomen: Soft, Other (TTP RLQ, no guarding ) Extremities: No clubbing, No cyanosis Skin: No rashes, No breakdown Review of Systems Review of Systems: Incisional pain. Denies fever, denies nausea, denies vomiting, denies shortness of breath. Assessment and Plan Assessmemt and Plan Problems Medical Problems: (1) Appendicitis Status: Acute Comment Review of Relevant I have reviewed the following items katja (where applicable) has been applied. Medications: Current Medications Medications (Trade) Dose Ordered Sig/Kingsley Route PRN Reason Start Time Stop Time Status Last Admin Dose Admin Fentanyl Citrate (Fentanyl 2ml Vial) 50 mcg PRN Q5MIN PRN IV MODERATE TO SEVERE PAIN 05/30/20 07:00 05/31/20 06:59 05/30/20 14:01 Ringer's Solution 1,000 ml @ 30 mls/hr Q24H IV 05/30/20 07:00 05/30/20 18:59 05/30/20 07:00 Prochlorperazine Edisylate (Compazine) 5 mg PACU PRN PRN IV NAUSEA, MRX1 05/30/20 07:00 05/31/20 06:59 05/30/20 14:00 Piperacillin Sod/ Tazobactam Sod 3.375 gm/Sodium Chloride 50 ml @ 100 mls/hr Q6HRS IV 05/29/20 22:00 05/30/20 12:00 Bupivacaine HCl/ Epinephrine Bitart (Sensorcain-Epi 0.5%-1:518938 Mpf) 30 ml STK-MED ONCE .ROUTE 05/30/20 11:50 05/30/20 11:51 DC 05/30/20 12:40 Scopolamine (Transderm-Scop) 1 patch 1X ONCE TD 05/30/20 14:30 05/30/20 14:31 DC 05/30/20 12:00 Morphine Sulfate (Morphine Sulfate) 1 mg PRN Q1HR PRN IV PAIN 05/30/20 14:30 05/30/20 16:05 Justifications for Admission Other Justification ANISHA GAMBOA MD May 30, 2020 17:12
[2020-05-30] MEDS: HYDROcodone/APAP 5/325MG 1 TAB TABLET PO PRN ×2 (17:35→22:06)
--- NOTE | 2020-05-30 17:45 | NUR ---
Patient underwent surgery today, came back to the unit at 1431, VSS, sleeping but arousable, denies pain, oxygen at 2LPM. Dressing clean, dry and intact. We'll continue to monitor.
[2020-05-30] MEDS: DOCUSATE SODIUM 100 MG CAPSULE. PO SCH (20:06)
[2020-05-31] MEDS: IV RINGERS,LACTATED 1000ML 1,000 ML IV SCH ×3 (00:20→19:27)
[2020-05-31] MEDS: MORPHINE SULFATE 2 MG/ML VIAL. IV PRN ×6 (00:37→22:21)
[2020-05-31] MEDS: HYDROcodone/APAP 5/325MG 1 TAB TABLET PO PRN ×6 (02:37→23:28)
--- NOTE | 2020-05-31 02:46 | NUR ---
Ambulating to bathroom several times. Tolerating activity well. Patient request regular diet in morning. Tolerating liquid diet without panin or N/V.
[2020-05-31 02:52] VITALS: BP 122/60
[2020-05-31] MEDS: PIPERACILLIN/TAZOBACTAM 3.375 GM in IV NORMAL SALINE 50ML 50 ML IV SCH ×3 (05:14→23:27)
[2020-05-31 07:00] VITALS: BP 124/69
[2020-05-31] MEDS: DOCUSATE SODIUM 100 MG CAPSULE. PO SCH ×2 (08:37→19:38)
[2020-05-31 10:01] LABS: CALCIUM 8.9 mg/dL (8.5-10.1); CREATININE 0.9 mg/dL (0.6-1.0); GFR 65.5; POTASSIUM 3.4 mmol/L (3.5-5.1)
[2020-05-31 10:05] LABS: BASO % 0 % (0-3); EOS % 1 % (0-3); HEMATOCRIT 34.8 % (36.0-47.0); LYMPH % 12 % (24-48); MEAN CORPUSCULAR HEMOGLOBIN 31 pg (25-35); MEAN CORPUSCULAR HGB CONC 35 g/dL (31-37); MEAN CORPUSCULAR VOLUME 89 fL (79-100); MONO # 0.4 x10^3/uL (0.0-1.1); MONO % 5 % (0-9); NEUT % 83 % (31-73); PLATELET COUNT 280 x10^3/uL (140-400); RED BLOOD COUNT 3.89 x10^6/uL (3.50-5.40); RED CELL DISTRIBUTION WIDTH 13.9 % (11.5-14.5); WHITE BLOOD COUNT 8.4 x10^3/uL (4.0-11.0)
[2020-05-31 10:56] VITALS: BP 124/71
--- NOTE | 2020-05-31 11:06 | PDOC ---
[employer] PROGRESS NOTE Date of Service DOS: DATE: 05/31/20 TIME: 11:02 Chief Complaint Chief Complaint Abdominal pain A/P: Abdominal pain - seems to be acute appendicitis. Zosyn, consult general surgery, IV pain control, IV antiemetics. urine negative. No cardiac history, will obtain pre-op EKG and pre op rapid COVID 19 screen Sepsis - with leukocytosis, tachycardia, due to appendicitis, given IVF, zosyn Elevated bilirubin - will monitor Mild protein calorie malnutrition - likely from poor PO intake 3 days Hematuria - possibly recently passed a stone Obesity - counseled on weight loss, diet, exercise History of Present Illness History of Present Illness Ms Grant is a 55 yo F w/ PMHx obesity who presented to ER for evaluation of epigastric and right upper quadrant abdominal pain that radiated to her shoulder since Wednesday05/27/2020. The pain woke her up around 0300. Symptom associated with nausea and vomiting. Patient denies any fever, no chest pain, no trouble breathing. Patient seen outpatient on 05/28 and placed on antacids and tramadol. Pain was minimally relieved with tramadol. She hoped the pain would go away, but it did not so sought treatment in ED. No vaginal complaints, has IUD in place. On evaluation she had US RUQ that did not reveal cholecystitis, gallstones, or CBD dilation. WBC 11.9, Hb 13.4, platelets 214, INR 1.1, NA 135, LA 3.7, BUN 10, CR 0.9, glucose 105, bilirubin 1.4, albumin 3.1. UA with some blood, so concern for nephrolithiasis prompted a CT abdomen which revealed acute appendicitis. 05/30/2020 Patient s/p laparoscopic appendectomy today. She admits to some incisional pain. She denies nausea or vomiting. She has not had a bowel movement. Denies flatus. Pain management. Discussed with RN 05/31/2020 Patient evaluated bedside. Abdominal pain improved. Still no bowel movement, not passing flatus. Tolerating p.o. diet. Encourage ambulation. DC antibiotics. May discharge pending improvement of bowel function. Vitals/I&O Vitals/I&O: Vital Signs Date Time Temp Pulse Resp B/P (MAP) Pulse Ox O2 Delivery O2 Flow Rate FiO2 05/31/20 10:56 98.8 69 21 124/71 (88) 97 Room Air 98.8 05/30/20 17:35 2.0 I & O 05/30/20 05/30/20 05/31/20 15:00 23:00 07:00 Intake Total 1100 ml 250 ml 250 ml Output Total 525 ml Balance 575 ml 250 ml 250 ml Physical Exam General: Alert, Oriented X3, Cooperative Heart: Regular rate, Normal S1, Normal S2 Abdomen: Soft, Other (TTP RLQ, no guarding ) Extremities: No clubbing, No cyanosis Skin: No rashes, No breakdown Labs Labs: Laboratory Tests Test 05/31/20 09:16 White Blood Count 8.4 x10^3/uL (4.0-11.0) Red Blood Count 3.89 x10^6/uL (3.50-5.40) Hemoglobin 12.0 g/dL (12.0-15.5) Hematocrit 34.8 % (36.0-47.0) Mean Corpuscular Volume 89 fL (79-100) Mean Corpuscular Hemoglobin 31 pg (25-35) Mean Corpuscular Hemoglobin Concent 35 g/dL (31-37) Red Cell Distribution Width 13.9 % (11.5-14.5) Platelet Count 280 x10^3/uL (140-400) Neutrophils (%) (Auto) 83 % (31-73) Lymphocytes (%) (Auto) 12 % (24-48) Monocytes (%) (Auto) 5 % (0-9) Eosinophils (%) (Auto) 1 % (0-3) Basophils (%) (Auto) 0 % (0-3) Neutrophils # (Auto) 7.0 x10^3/uL (1.8-7.7) Lymphocytes # (Auto) 1.0 x10^3/uL (1.0-4.8) Monocytes # (Auto) 0.4 x10^3/uL (0.0-1.1) Eosinophils # (Auto) 0.0 x10^3/uL (0.0-0.7) Basophils # (Auto) 0.0 x10^3/uL (0.0-0.2) Sodium Level 138 mmol/L (136-145) Potassium Level 3.4 mmol/L (3.5-5.1) Chloride Level 103 mmol/L (98-107) Carbon Dioxide Level 27 mmol/L (21-32) Anion Gap 8 (6-14) Blood Urea Nitrogen 8 mg/dL (7-20) Creatinine 0.9 mg/dL (0.6-1.0) Estimated GFR (Cockcroft-Gault) 65.5 Glucose Level 131 mg/dL (70-99) Calcium Level 8.9 mg/dL (8.5-10.1) Review of Systems Review of Systems: Abdominal pain. Denies shortness of breath, denies fever. Assessment and Plan Assessmemt and Plan Problems Medical Problems: (1) Appendicitis Status: Acute Comment Review of Relevant I have reviewed the following items katja (where applicable) has been applied. Medications: Current Medications Medications (Trade) Dose Ordered Sig/Kingsley Route PRN Reason Start Time Stop Time Status Last Admin Dose Admin Bupivacaine HCl/ Epinephrine Bitart (Sensorcain-Epi 0.5%-1:307933 Mpf) 30 ml STK-MED ONCE .ROUTE 05/30/20 11:50 05/30/20 11:51 DC 05/30/20 12:40 Scopolamine (Transderm-Scop) 1 patch 1X ONCE TD 05/30/20 14:30 05/30/20 14:31 DC 05/30/20 12:00 Acetaminophen/ Hydrocodone Bitart (Lortab 5/325) 1 tab PRN Q4HRS PRN PO MILD PAIN 1-3 05/30/20 14:30 05/31/20 10:50 Morphine Sulfate (Morphine Sulfate) 1 mg PRN Q1HR PRN IV PAIN 05/30/20 14:30 05/31/20 05:13 Docusate Sodium (Colace) 100 mg BID PO 05/30/20 21:00 05/31/20 08:37 Justifications for Admission Other Justification ANISHA GAMBOA MD May 31, 2020 11:06
[2020-05-31] MEDS: ENOXAPARIN 40 MG/0.4 ML SYRINGE. SQ SCH ×2 (11:57→19:38)
--- NOTE | 2020-05-31 11:59 | PDOC ---
SURGICAL PROGRESS NOTE DATE: 05/31/20 TIME: 11:59 Subjective improved from preop surgical pain no n/v Vital Signs Vital Signs Date Time Temp Pulse Resp B/P (MAP) Pulse Ox O2 Delivery O2 Flow Rate FiO2 05/31/20 11:50 Room Air 05/31/20 10:56 98.8 69 21 124/71 (88) 97 98.8 05/30/20 17:35 2.0 I&O Intake and Output 05/31/20 07:00 Intake Total 1600 ml Output Total 525 ml Balance 1075 ml Intake Oral 400 ml IV Total 1200 ml Output Urine Total 400 ml Estimated Blood Loss 125 ml # Voids 3 General: Alert, Oriented X3, Cooperative Abdomen: Soft, Other (ttp lap sites ) Labs Laboratory Tests Test 05/29/20 12:18 05/29/20 12:20 05/29/20 15:15 05/31/20 09:16 Bedside Urine HCG, Qualitative Hcg negative (Negative) White Blood Count 11.9 x10^3/uL (4.0-11.0) 8.4 x10^3/uL (4.0-11.0) Red Blood Count 4.42 x10^6/uL (3.50-5.40) 3.89 x10^6/uL (3.50-5.40) Hemoglobin 13.4 g/dL (12.0-15.5) 12.0 g/dL (12.0-15.5) Hematocrit 39.2 % (36.0-47.0) 34.8 % (36.0-47.0) Mean Corpuscular Volume 89 fL (79-100) 89 fL (79-100) Mean Corpuscular Hemoglobin 30 pg (25-35) 31 pg (25-35) Mean Corpuscular Hemoglobin Concent 34 g/dL (31-37) 35 g/dL (31-37) Red Cell Distribution Width 14.0 % (11.5-14.5) 13.9 % (11.5-14.5) Platelet Count 242 x10^3/uL (140-400) 280 x10^3/uL (140-400) Neutrophils (%) (Auto) 90 % (31-73) 83 % (31-73) Lymphocytes (%) (Auto) 5 % (24-48) 12 % (24-48) Monocytes (%) (Auto) 4 % (0-9) 5 % (0-9) Eosinophils (%) (Auto) 1 % (0-3) 1 % (0-3) Basophils (%) (Auto) 0 % (0-3) 0 % (0-3) Neutrophils # (Auto) 10.8 x10^3/uL (1.8-7.7) 7.0 x10^3/uL (1.8-7.7) Lymphocytes # (Auto) 0.6 x10^3/uL (1.0-4.8) 1.0 x10^3/uL (1.0-4.8) Monocytes # (Auto) 0.5 x10^3/uL (0.0-1.1) 0.4 x10^3/uL (0.0-1.1) Eosinophils # (Auto) 0.1 x10^3/uL (0.0-0.7) 0.0 x10^3/uL (0.0-0.7) Basophils # (Auto) 0.1 x10^3/uL (0.0-0.2) 0.0 x10^3/uL (0.0-0.2) Segmented Neutrophils % 91 % (35-66) Lymphocytes % 5 % (24-48) Monocytes % 4 % (0-10) Platelet Estimate Adequate (ADEQUATE) Prothrombin Time 14.2 SEC (11.7-14.0) Prothromb Time International Ratio 1.1 (0.8-1.1) Activated Partial Thromboplast Time 34 SEC (24-38) Sodium Level 135 mmol/L (136-145) 138 mmol/L (136-145) Potassium Level 3.7 mmol/L (3.5-5.1) 3.4 mmol/L (3.5-5.1) Chloride Level 100 mmol/L (98-107) 103 mmol/L (98-107) Carbon Dioxide Level 28 mmol/L (21-32) 27 mmol/L (21-32) Anion Gap 7 (6-14) 8 (6-14) Blood Urea Nitrogen 10 mg/dL (7-20) 8 mg/dL (7-20) Creatinine 0.9 mg/dL (0.6-1.0) 0.9 mg/dL (0.6-1.0) Estimated GFR (Cockcroft-Gault) 65.5 65.5 BUN/Creatinine Ratio 11 (6-20) Glucose Level 105 mg/dL (70-99) 131 mg/dL (70-99) Calcium Level 9.0 mg/dL (8.5-10.1) 8.9 mg/dL (8.5-10.1) Magnesium Level 1.9 mg/dL (1.8-2.4) Total Bilirubin 1.4 mg/dL (0.2-1.0) Aspartate Amino Transf (AST/SGOT) 14 U/L (15-37) Alanine Aminotransferase (ALT/SGPT) 17 U/L (14-59) Alkaline Phosphatase 73 U/L (46-116) Total Protein 7.4 g/dL (6.4-8.2) Albumin 3.1 g/dL (3.4-5.0) Albumin/Globulin Ratio 0.7 (1.0-1.7) Lipase 69 U/L (73-393) Coronavirus (PCR) Not detected (Not Detected) SARS-CoV-2 Antigen (Rapid) Negative (NEGATIVE) Laboratory Tests Test 05/31/20 09:16 White Blood Count 8.4 x10^3/uL (4.0-11.0) Red Blood Count 3.89 x10^6/uL (3.50-5.40) Hemoglobin 12.0 g/dL (12.0-15.5) Hematocrit 34.8 % (36.0-47.0) Mean Corpuscular Volume 89 fL (79-100) Mean Corpuscular Hemoglobin 31 pg (25-35) Mean Corpuscular Hemoglobin Concent 35 g/dL (31-37) Red Cell Distribution Width 13.9 % (11.5-14.5) Platelet Count 280 x10^3/uL (140-400) Neutrophils (%) (Auto) 83 % (31-73) Lymphocytes (%) (Auto) 12 % (24-48) Monocytes (%) (Auto) 5 % (0-9) Eosinophils (%) (Auto) 1 % (0-3) Basophils (%) (Auto) 0 % (0-3) Neutrophils # (Auto) 7.0 x10^3/uL (1.8-7.7) Lymphocytes # (Auto) 1.0 x10^3/uL (1.0-4.8) Monocytes # (Auto) 0.4 x10^3/uL (0.0-1.1) Eosinophils # (Auto) 0.0 x10^3/uL (0.0-0.7) Basophils # (Auto) 0.0 x10^3/uL (0.0-0.2) Sodium Level 138 mmol/L (136-145) Potassium Level 3.4 mmol/L (3.5-5.1) Chloride Level 103 mmol/L (98-107) Carbon Dioxide Level 27 mmol/L (21-32) Anion Gap 8 (6-14) Blood Urea Nitrogen 8 mg/dL (7-20) Creatinine 0.9 mg/dL (0.6-1.0) Estimated GFR (Cockcroft-Gault) 65.5 Glucose Level 131 mg/dL (70-99) Calcium Level 8.9 mg/dL (8.5-10.1) Problem List Problems Medical Problems: (1) Appendicitis Status: Acute Assessment/Plan s/p appy continue abx Justicifation of Admission Dx: Justifications for Admission: Justification of Admission Dx: Yes (APPENDICITIS) [employer] May 31, 2020 11:59
--- NOTE | 2020-05-31 12:09 | NUR ---
SS following up with discharge planning. SS reviewed pt chart and discussed with pt RN. Pt is currently on room air. Discharge plan is to home when medically ready. Pt needing to have bowel movement. SS will continue to follow for discharge planning.
[2020-05-31] MEDS: IV NORMAL SALINE 1000ML BAG 1,000 ML IV SCH (14:20)
[2020-05-31 15:00] VITALS: BP 120/68
[2020-05-31] MEDS: POLYETHYLENE GLYCOL 3350 17 GM PACKET. PO PRN (17:28)
--- NOTE | 2020-05-31 18:06 | NUR ---
Patient ambulated around unit with RN today & has ambulated to the bathroom. Patient has had 2 prune juices, colace, & miralax today but has yet to pass gas or have a bowel movement. Patient states Wednesday was her last bowel movement. Patient is however belching at times. Patient complains of abdominal pain. Pain medication & ice given for pain relief measures. Patient has had regular diet today with no nausea/vomiting. Will continue to monitor.
[2020-05-31 18:38] VITALS: BP 121/66
[2020-05-31 23:30] VITALS: BP 143/68
[2020-06-01] MEDS: MORPHINE SULFATE 2 MG/ML VIAL. IV PRN ×4 (02:18→12:18)
[2020-06-01 02:24] VITALS: BP 147/72
[2020-06-01 05:06] LABS: BASO # 0.1 x10^3/uL (0.0-0.2); BASO % 1 % (0-3); EOS # 0.2 x10^3/uL (0.0-0.7); EOS % 2 % (0-3); HEMATOCRIT 37.1 % (36.0-47.0); HEMOGLOBIN 12.5 g/dL (12.0-15.5); LYMPH # 1.6 x10^3/uL (1.0-4.8); LYMPH % 21 % (24-48); MEAN CORPUSCULAR HEMOGLOBIN 30 pg (25-35); MEAN CORPUSCULAR HGB CONC 34 g/dL (31-37); MEAN CORPUSCULAR VOLUME 89 fL (79-100); MONO # 0.7 x10^3/uL (0.0-1.1); MONO % 9 % (0-9); NEUT # 5.2 x10^3/uL (1.8-7.7); NEUT % 67 % (31-73); PLATELET COUNT 306 x10^3/uL (140-400); RED BLOOD COUNT 4.15 x10^6/uL (3.50-5.40); RED CELL DISTRIBUTION WIDTH 14.1 % (11.5-14.5); WHITE BLOOD COUNT 7.7 x10^3/uL (4.0-11.0)
[2020-06-01] MEDS: HYDROcodone/APAP 5/325MG 1 TAB TABLET PO PRN ×3 (05:11→16:00)
[2020-06-01] MEDS: PIPERACILLIN/TAZOBACTAM 3.375 GM in IV NORMAL SALINE 50ML 50 ML IV SCH ×2 (05:13→12:07)
[2020-06-01 05:21] LABS: CALCIUM 8.6 mg/dL (8.5-10.1); POTASSIUM 3.4 mmol/L (3.5-5.1)
[2020-06-01] MEDS: IV RINGERS,LACTATED 1000ML 1,000 ML IV SCH (06:20)
[2020-06-01 07:00] VITALS: BP 130/83
[2020-06-01] MEDS: DOCUSATE SODIUM 100 MG CAPSULE. PO SCH (08:28)
[2020-06-01] MEDS: ENOXAPARIN 40 MG/0.4 ML SYRINGE. SQ SCH (08:29)
--- NOTE | 2020-06-01 10:59 | PDOC ---
[facility] PROGRESS NOTE Date of Service DOS: DATE: 06/01/20 TIME: 10:59 Chief Complaint Chief Complaint Abdominal pain A/P: Abdominal pain - seems to be acute appendicitis. Zosyn, consult general surgery, IV pain control, IV antiemetics. urine negative. No cardiac history, will obtain pre-op EKG and pre op rapid COVID 19 screen Sepsis - with leukocytosis, tachycardia, due to appendicitis, given IVF, zosyn Elevated bilirubin - will monitor Mild protein calorie malnutrition - likely from poor PO intake 3 days Hematuria - possibly recently passed a stone Obesity - counseled on weight loss, diet, exercise History of Present Illness History of Present Illness Ms Grant is a 55 yo F w/ PMHx obesity who presented to ER for evaluation of epigastric and right upper quadrant abdominal pain that radiated to her shoulder since Wednesday05/27/2020. The pain woke her up around 0300. Symptom associated with nausea and vomiting. Patient denies any fever, no chest pain, no trouble breathing. Patient seen outpatient on 05/28 and placed on antacids and tramadol. Pain was minimally relieved with tramadol. She hoped the pain would go away, but it did not so sought treatment in ED. No vaginal complaints, has IUD in place. On evaluation she had US RUQ that did not reveal cholecystitis, gallstones, or CBD dilation. WBC 11.9, Hb 13.4, platelets 214, INR 1.1, NA 135, LA 3.7, BUN 10, CR 0.9, glucose 105, bilirubin 1.4, albumin 3.1. UA with some blood, so concern for nephrolithiasis prompted a CT abdomen which revealed acute appendicitis. 05/30/2020 Patient s/p laparoscopic appendectomy today. She admits to some incisional pain. She denies nausea or vomiting. She has not had a bowel movement. Denies flatus. Pain management. Discussed with RN 05/31/2020 Patient evaluated bedside. Abdominal pain improved. Still no bowel movement, not passing flatus. Tolerating p.o. diet. Encourage ambulation. DC antibiotics. May discharge pending improvement of bowel function. 06/01/2020 Patient evaluated at bedside. She reports improvement in her abdominal pain. She is passing flatus, but has not had a bowel movement yet. Encourage ambulation to promote bowel function. Discussed with RN, she may discharge later today pending improvement in her symptoms. Vitals/I&O Vitals/I&O: Vital Signs Date Time Temp Pulse Resp B/P (MAP) Pulse Ox O2 Delivery O2 Flow Rate FiO2 06/01/20 08:29 94 Room Air 06/01/20 07:00 97.8 72 16 130/83 (99) 97.8 I & O 05/31/20 05/31/20 06/01/20 15:00 23:00 07:00 Intake Total 380 ml 100 ml 400 ml Balance 380 ml 100 ml 400 ml Physical Exam General: Alert, Oriented X3, Cooperative Heart: Regular rate, Normal S1, Normal S2 Abdomen: Soft, Other (ttp lap sites ) Extremities: No clubbing, No cyanosis Skin: No rashes, No breakdown Labs Labs: Laboratory Tests Test 06/01/20 04:45 White Blood Count 7.7 x10^3/uL (4.0-11.0) Red Blood Count 4.15 x10^6/uL (3.50-5.40) Hemoglobin 12.5 g/dL (12.0-15.5) Hematocrit 37.1 % (36.0-47.0) Mean Corpuscular Volume 89 fL (79-100) Mean Corpuscular Hemoglobin 30 pg (25-35) Mean Corpuscular Hemoglobin Concent 34 g/dL (31-37) Red Cell Distribution Width 14.1 % (11.5-14.5) Platelet Count 306 x10^3/uL (140-400) Neutrophils (%) (Auto) 67 % (31-73) Lymphocytes (%) (Auto) 21 % (24-48) Monocytes (%) (Auto) 9 % (0-9) Eosinophils (%) (Auto) 2 % (0-3) Basophils (%) (Auto) 1 % (0-3) Neutrophils # (Auto) 5.2 x10^3/uL (1.8-7.7) Lymphocytes # (Auto) 1.6 x10^3/uL (1.0-4.8) Monocytes # (Auto) 0.7 x10^3/uL (0.0-1.1) Eosinophils # (Auto) 0.2 x10^3/uL (0.0-0.7) Basophils # (Auto) 0.1 x10^3/uL (0.0-0.2) Sodium Level 140 mmol/L (136-145) Potassium Level 3.4 mmol/L (3.5-5.1) Chloride Level 104 mmol/L (98-107) Carbon Dioxide Level 28 mmol/L (21-32) Anion Gap 8 (6-14) Blood Urea Nitrogen 7 mg/dL (7-20) Creatinine 1.0 mg/dL (0.6-1.0) Estimated GFR (Cockcroft-Gault) 58.0 Glucose Level 109 mg/dL (70-99) Calcium Level 8.6 mg/dL (8.5-10.1) Review of Systems Review of Systems: Abdominal pain. Denies fever, denies nausea, denies vomiting. Assessment and Plan Assessmemt and Plan Problems Medical Problems: (1) Appendicitis Status: Acute Comment Review of Relevant I have reviewed the following items katja (where applicable) has been applied. Medications: Current Medications Medications (Trade) Dose Ordered Sig/Kingsley Route PRN Reason Start Time Stop Time Status Last Admin Dose Admin Piperacillin Sod/ Tazobactam Sod 3.375 gm/Sodium Chloride 50 ml @ 100 mls/hr Q6HRS IV 05/31/20 18:00 06/01/20 18:00 06/01/20 05:13 Polyethylene Glycol (miraLAX PACKET) 17 gm PRN DAILY PRN PO CONSTIPATION 05/31/20 16:15 05/31/20 17:28 Justifications for Admission Other Justification ANISHA GAMBOA MD Jun 01, 2020 10:59
[2020-06-01 11:00] VITALS: BP 123/71
[2020-06-01] MEDS: POLYETHYLENE GLYCOL 3350 17 GM PACKET. PO PRN (12:07)
--- NOTE | 2020-06-01 12:57 | PDOC ---
SURGICAL PROGRESS NOTE DATE: 06/01/20 TIME: 12:55 Subjective low appetite did eat breakfast and lunch yesterday some flatus this afternoon has not been walking Vital Signs Vital Signs Date Time Temp Pulse Resp B/P (MAP) Pulse Ox O2 Delivery O2 Flow Rate FiO2 06/01/20 12:48 96 Room Air 06/01/20 11:00 98.9 93 16 123/71 (88) 98.9 I&O Intake and Output 06/01/20 07:00 Intake Total 880 ml Balance 880 ml Intake Oral 830 ml IV Total 50 ml # Voids 2 General: Alert, Oriented X3, Cooperative Abdomen: Soft, Other (lap dressings dry) Labs Laboratory Tests Test 05/31/20 09:16 06/01/20 04:45 White Blood Count 8.4 x10^3/uL (4.0-11.0) 7.7 x10^3/uL (4.0-11.0) Red Blood Count 3.89 x10^6/uL (3.50-5.40) 4.15 x10^6/uL (3.50-5.40) Hemoglobin 12.0 g/dL (12.0-15.5) 12.5 g/dL (12.0-15.5) Hematocrit 34.8 % (36.0-47.0) 37.1 % (36.0-47.0) Mean Corpuscular Volume 89 fL (79-100) 89 fL (79-100) Mean Corpuscular Hemoglobin 31 pg (25-35) 30 pg (25-35) Mean Corpuscular Hemoglobin Concent 35 g/dL (31-37) 34 g/dL (31-37) Red Cell Distribution Width 13.9 % (11.5-14.5) 14.1 % (11.5-14.5) Platelet Count 280 x10^3/uL (140-400) 306 x10^3/uL (140-400) Neutrophils (%) (Auto) 83 % (31-73) 67 % (31-73) Lymphocytes (%) (Auto) 12 % (24-48) 21 % (24-48) Monocytes (%) (Auto) 5 % (0-9) 9 % (0-9) Eosinophils (%) (Auto) 1 % (0-3) 2 % (0-3) Basophils (%) (Auto) 0 % (0-3) 1 % (0-3) Neutrophils # (Auto) 7.0 x10^3/uL (1.8-7.7) 5.2 x10^3/uL (1.8-7.7) Lymphocytes # (Auto) 1.0 x10^3/uL (1.0-4.8) 1.6 x10^3/uL (1.0-4.8) Monocytes # (Auto) 0.4 x10^3/uL (0.0-1.1) 0.7 x10^3/uL (0.0-1.1) Eosinophils # (Auto) 0.0 x10^3/uL (0.0-0.7) 0.2 x10^3/uL (0.0-0.7) Basophils # (Auto) 0.0 x10^3/uL (0.0-0.2) 0.1 x10^3/uL (0.0-0.2) Sodium Level 138 mmol/L (136-145) 140 mmol/L (136-145) Potassium Level 3.4 mmol/L (3.5-5.1) 3.4 mmol/L (3.5-5.1) Chloride Level 103 mmol/L (98-107) 104 mmol/L (98-107) Carbon Dioxide Level 27 mmol/L (21-32) 28 mmol/L (21-32) Anion Gap 8 (6-14) 8 (6-14) Blood Urea Nitrogen 8 mg/dL (7-20) 7 mg/dL (7-20) Creatinine 0.9 mg/dL (0.6-1.0) 1.0 mg/dL (0.6-1.0) Estimated GFR (Cockcroft-Gault) 65.5 58.0 Glucose Level 131 mg/dL (70-99) 109 mg/dL (70-99) Calcium Level 8.9 mg/dL (8.5-10.1) 8.6 mg/dL (8.5-10.1) Laboratory Tests Test 06/01/20 04:45 White Blood Count 7.7 x10^3/uL (4.0-11.0) Red Blood Count 4.15 x10^6/uL (3.50-5.40) Hemoglobin 12.5 g/dL (12.0-15.5) Hematocrit 37.1 % (36.0-47.0) Mean Corpuscular Volume 89 fL (79-100) Mean Corpuscular Hemoglobin 30 pg (25-35) Mean Corpuscular Hemoglobin Concent 34 g/dL (31-37) Red Cell Distribution Width 14.1 % (11.5-14.5) Platelet Count 306 x10^3/uL (140-400) Neutrophils (%) (Auto) 67 % (31-73) Lymphocytes (%) (Auto) 21 % (24-48) Monocytes (%) (Auto) 9 % (0-9) Eosinophils (%) (Auto) 2 % (0-3) Basophils (%) (Auto) 1 % (0-3) Neutrophils # (Auto) 5.2 x10^3/uL (1.8-7.7) Lymphocytes # (Auto) 1.6 x10^3/uL (1.0-4.8) Monocytes # (Auto) 0.7 x10^3/uL (0.0-1.1) Eosinophils # (Auto) 0.2 x10^3/uL (0.0-0.7) Basophils # (Auto) 0.1 x10^3/uL (0.0-0.2) Sodium Level 140 mmol/L (136-145) Potassium Level 3.4 mmol/L (3.5-5.1) Chloride Level 104 mmol/L (98-107) Carbon Dioxide Level 28 mmol/L (21-32) Anion Gap 8 (6-14) Blood Urea Nitrogen 7 mg/dL (7-20) Creatinine 1.0 mg/dL (0.6-1.0) Estimated GFR (Cockcroft-Gault) 58.0 Glucose Level 109 mg/dL (70-99) Calcium Level 8.6 mg/dL (8.5-10.1) Problem List Problems Medical Problems: (1) Appendicitis Status: Acute Assessment/Plan s/p appy wbc normal dc iv pain meds ambulate if tolerating oral meds can dc home later today with oral abx Justicifation of Admission Dx: Justifications for Admission: Justification of Admission Dx: Yes (APPENDICITIS) [employer] Jun 01, 2020 12:57
[2020-06-01] MEDS ORDERED: HYDR-2761 PO (13:00)
[2020-06-01] MEDS ORDERED: DOCU-153 PO (13:00)
[2020-06-01] MEDS ORDERED: AMOX1TAB61 PO (13:00)
--- NOTE | 2020-06-01 14:12 | PDOC3 ---
Discharge Summary Visit Information Date of Admission: May 29, 2020 Date of Discharge: Jun 01, 2020 Final Diagnosis Problems Medical Problems: (1) Appendicitis Status: Acute Brief Hospital Course Allergies Allergies Coded Allergies Type Severity Reaction Last Updated Verified No Known Drug Allergies 05/29/20 No Vital Signs Vital Signs Date Time Temp Pulse Resp B/P (MAP) Pulse Ox O2 Delivery O2 Flow Rate FiO2 06/01/20 13:06 96 Room Air 06/01/20 11:00 98.9 93 16 123/71 (88) 98.9 Lab Results Laboratory Tests Test 05/31/20 09:16 06/01/20 04:45 White Blood Count 8.4 x10^3/uL (4.0-11.0) 7.7 x10^3/uL (4.0-11.0) Red Blood Count 3.89 x10^6/uL (3.50-5.40) 4.15 x10^6/uL (3.50-5.40) Hemoglobin 12.0 g/dL (12.0-15.5) 12.5 g/dL (12.0-15.5) Hematocrit 34.8 % (36.0-47.0) 37.1 % (36.0-47.0) Mean Corpuscular Volume 89 fL (79-100) 89 fL (79-100) Mean Corpuscular Hemoglobin 31 pg (25-35) 30 pg (25-35) Mean Corpuscular Hemoglobin Concent 35 g/dL (31-37) 34 g/dL (31-37) Red Cell Distribution Width 13.9 % (11.5-14.5) 14.1 % (11.5-14.5) Platelet Count 280 x10^3/uL (140-400) 306 x10^3/uL (140-400) Neutrophils (%) (Auto) 83 % (31-73) 67 % (31-73) Lymphocytes (%) (Auto) 12 % (24-48) 21 % (24-48) Monocytes (%) (Auto) 5 % (0-9) 9 % (0-9) Eosinophils (%) (Auto) 1 % (0-3) 2 % (0-3) Basophils (%) (Auto) 0 % (0-3) 1 % (0-3) Neutrophils # (Auto) 7.0 x10^3/uL (1.8-7.7) 5.2 x10^3/uL (1.8-7.7) Lymphocytes # (Auto) 1.0 x10^3/uL (1.0-4.8) 1.6 x10^3/uL (1.0-4.8) Monocytes # (Auto) 0.4 x10^3/uL (0.0-1.1) 0.7 x10^3/uL (0.0-1.1) Eosinophils # (Auto) 0.0 x10^3/uL (0.0-0.7) 0.2 x10^3/uL (0.0-0.7) Basophils # (Auto) 0.0 x10^3/uL (0.0-0.2) 0.1 x10^3/uL (0.0-0.2) Sodium Level 138 mmol/L (136-145) 140 mmol/L (136-145) Potassium Level 3.4 mmol/L (3.5-5.1) 3.4 mmol/L (3.5-5.1) Chloride Level 103 mmol/L (98-107) 104 mmol/L (98-107) Carbon Dioxide Level 27 mmol/L (21-32) 28 mmol/L (21-32) Anion Gap 8 (6-14) 8 (6-14) Blood Urea Nitrogen 8 mg/dL (7-20) 7 mg/dL (7-20) Creatinine 0.9 mg/dL (0.6-1.0) 1.0 mg/dL (0.6-1.0) Estimated GFR (Cockcroft-Gault) 65.5 58.0 Glucose Level 131 mg/dL (70-99) 109 mg/dL (70-99) Calcium Level 8.9 mg/dL (8.5-10.1) 8.6 mg/dL (8.5-10.1) Laboratory Tests Test 06/01/20 04:45 White Blood Count 7.7 x10^3/uL (4.0-11.0) Red Blood Count 4.15 x10^6/uL (3.50-5.40) Hemoglobin 12.5 g/dL (12.0-15.5) Hematocrit 37.1 % (36.0-47.0) Mean Corpuscular Volume 89 fL (79-100) Mean Corpuscular Hemoglobin 30 pg (25-35) Mean Corpuscular Hemoglobin Concent 34 g/dL (31-37) Red Cell Distribution Width 14.1 % (11.5-14.5) Platelet Count 306 x10^3/uL (140-400) Neutrophils (%) (Auto) 67 % (31-73) Lymphocytes (%) (Auto) 21 % (24-48) Monocytes (%) (Auto) 9 % (0-9) Eosinophils (%) (Auto) 2 % (0-3) Basophils (%) (Auto) 1 % (0-3) Neutrophils # (Auto) 5.2 x10^3/uL (1.8-7.7) Lymphocytes # (Auto) 1.6 x10^3/uL (1.0-4.8) Monocytes # (Auto) 0.7 x10^3/uL (0.0-1.1) Eosinophils # (Auto) 0.2 x10^3/uL (0.0-0.7) Basophils # (Auto) 0.1 x10^3/uL (0.0-0.2) Sodium Level 140 mmol/L (136-145) Potassium Level 3.4 mmol/L (3.5-5.1) Chloride Level 104 mmol/L (98-107) Carbon Dioxide Level 28 mmol/L (21-32) Anion Gap 8 (6-14) Blood Urea Nitrogen 7 mg/dL (7-20) Creatinine 1.0 mg/dL (0.6-1.0) Estimated GFR (Cockcroft-Gault) 58.0 Glucose Level 109 mg/dL (70-99) Calcium Level 8.6 mg/dL (8.5-10.1) Brief Hospital Course Ms. Grant is a 55 old female who presented with appendicitis. Consults placed to general surgery. She had laparoscopic appendectomy. She was discharged on antibiotics and pain medication. Discharge Information Condition at Discharge: Improved Follow Up: Weeks Disposition/Orders: D/C to Home Scheduled Amoxicillin/Potassium Clav (Augmentin 875-125 Tablet) 1 Each Tablet, 1 TAB PO BID for appendicitis for 10 Days, #20 Ref 0 Prescribed by: Analy Roberts on 06/01/20 1300 Docusate Sodium (Dok) 100 Mg Capsule, 100 MG PO BID for constipation, #60 Prescribed by: Aanly Roberts on 06/01/20 1300 Scheduled PRN Hydrocodone Bit/Acetaminophen (Hydrocodone-Apap 5-325 ) 1 Tab Tablet, 1 TAB PO PRN Q4HRS PRN for MILD PAIN 1-3, #30 Ref 0 Prescribed by: Analy Roberts on 06/01/20 1300 Justicifation of Admission Dx: Justifications for Admission: Justification of Admission Dx: Yes (APPENDICITIS) ANISHA GAMBOA MD Jun 01, 2020 14:12
[2020-06-01] MEDS: IV NORMAL SALINE 1000ML BAG 1,000 ML IV SCH (14:20)
--- NOTE | 2020-06-01 16:53 | NUR ---
Discharge Note: ANAMIKA [facility] Discharge instructions and discharge home medications reviewed with Patient and a copy given. All questions have been answered and understanding verbalized. The following instructions and handouts were given: constipation, lortab, post lap appy care, and symptoms worsening. Discontinued lines and drains: periveral iv discontinued. Patient discharged to home via wheelchair accompanied by family.
== END 2020-06-01 17:02 | disposition home or self-care (01) | DRG 854 ==
LOC: ER 11:26 → ED HOLD 15:00 → 2 SOUTH 16:16
PROVIDERS: ADMIT Internal Medicine; ATTEND Internal Medicine
PROC: 0DTJ4ZZ Resection of Appendix, Percutaneous Endoscopic Approach (ICD-10-PCS; principal; 2020-05-30 11:30)
DX: A41.9 Sepsis, unspecified organism (principal); K35.80 Unspecified acute appendicitis; E44.1 Mild protein-calorie malnutrition; Z68.41 Body mass index [BMI] 40.0-44.9, adult; E66.9 Obesity, unspecified; K29.70 Gastritis, unspecified, without bleeding; Z82.49 Family history of ischemic heart disease and other diseases of the circulatory system; Z79.899 Other long term (current) drug therapy; Z20.828 Contact with and (suspected) exposure to other viral communicable diseases
CPT/HCPCS: 36415; 74176; 76705; 80048; 80053; 81001; 81025; 83690; 83735; 85007; 85025; 85610; 85730; 87086; 87426; 93005; 96365; 96375; 99285; A7015; J0780; J1100; J1650; J1885; J2250; J2270; J2405; J2543; J2704; J2710; J3010; J3490; J7030; J7120; G0378; U0003-CS

== ENCOUNTER → 2021-11-26 | Outpatient (CLI) | payer BC ==
[~2021-11-26] MED LIST: AMOX1TAB61 PO; DOCU-148 PO; HYDR-2761 PO
--- NOTE | 2021-11-26 16:53 | KCIC ---
Study: XR HIP (WITH OR WITHOUT PELVIS) 1 VIEW Indication: Bilateral hip pain. Comparison: CT abdomen/pelvis 05/29/2020 Findings: Severe arthrosis at the right hip with [id number] at the cephalad aspect of the joint space and per iarticular sclerosis/cystic change. Femoral head/neck junction osteophytes. Moderate arthrosis at the left hip with joint space narrowing superiorly. Femoral head/neck junction osteophytes. No advanced arthrosis at the pubic symphysis or sacroiliac joints. Facet arthrosis at the lower lumbar spine and discogenic arthrosis at L5-S1 which is not fully evaluated. The bones appear osteopenic. Intrauterine contraceptive device. Impression: 1. Severe right and moderate left hip arthrosis which has progressed from the 05/29/2020 CT. 2. Incompletely evaluated lower lumbar degenerative changes appearing greatest at L5-S1. 3. Osteopenia. Intrauterine contraceptive device. Electronically signed by: LON CANO MD (11/26/2021 4:51 PM) [id number]
== END ==
LOC: KCIC 14:27
PROVIDERS: ATTEND Family Medicine
DX: M16.0 Bilateral primary osteoarthritis of hip (principal); M47.817 Spondylosis without myelopathy or radiculopathy, lumbosacral region; M85.88 Other specified disorders of bone density and structure, other site; Z97.5 Presence of (intrauterine) contraceptive device
CPT/HCPCS: 73521